=== PATIENT | male | born 1980 | race Two or more races ===

== ENCOUNTER 2016-05-23 14:42 | Emergency (ER) | payer OTHER ==
[2016-05-23 14:47] VITALS: BP 112/71; PULSE 78; RESP 16; TEMP 97.7; O2SAT 98
--- NOTE | 2016-05-23 15:16 | EDPHY ---
H & P Stated Complaint: COUGH X 1 WEEK YELLOW SPUTUM--SON HAS SIMILIAR Time Seen by Provider: 05/23/16 15:15 - Personal History Current Tetanus/Diphtheria Vaccine: Unsure Current Tetanus Diphtheria and Acellular Pertussis (TDAP): Unsure - Medical/Surgical History Hx Asthma: No Hx Chronic Respiratory Disease: No Hx Diabetes: No Hx Cardiac Disease: No Hx Renal Disease: No Hx Cirrhosis: No Hx Alcoholism: No Hx HIV/AIDS: No Hx Splenectomy or Spleen Trauma: No Other PMH: DENIES - Social History Smoking Status: Never smoked Constitutional: Initial Vital Signs Temperature (C) 36.5 C 05/23/16 14:44 Heart Rate 78 05/23/16 14:44 Respiratory Rate 16 05/23/16 14:44 Blood Pressure 112/71 05/23/16 14:44 O2 Sat (%) 98 05/23/16 14:44 O2 Delivery Mode Room Air Allergies/Adverse Reactions: No Known Allergies Allergy (Verified 05/23/16 14:43) Home Medications: Medication Instructions Recorded Vits 04/07/09 Medical Decision Making ED Course/Re-evaluation: CHIEF COMPLAINT: Cough HISTORY OF PRESENT ILLNESS: The patient is a 36 year old male presenting with ongoing cough for the past 2 weeks. The patient reports dry cough that is worse at night. He feels congested and more fatigued than usual. He has associated chest pain secondary to cough. He reports chest tightness that radiates into his throat. He took cough syrup, but his symptoms did not improve. The patient feels like his symptoms are getting worse. His son has similar symptoms and was just started on antibiotics. He denies fever or shortness of breath. REVIEW OF SYSTEMS: A 10 point review of systems was performed and is negative with the exception of the elements mentioned in the history of present illness. PHYSICAL EXAM: HR, BP, O2 Sat, RR. Temp noted General Appearance: Alert, well hydrated, appropriate, and non-toxic appearing. Head: Atraumatic without scalp tenderness or obvious injury Eyes: Pupils equal, round, reactive to light and accommodation, EOMI, no trauma , no injection. Ears: Clear bilaterally, no perforation, normal landmarks Nose: Atraumatic, no rhinorrhea, clear. Throat: There is no erythema or exudates, no lesions, normal tonsils, mucus membranes moist. Neck: Supple, 2+ carotid upstroke, nontender, no lymphadenopathy. Respiratory: No retractions, no distress, no wheezes, and no accessory muscle use. Lungs are clear to auscultation bilaterally. Cardiovascular: Regular rate and rhythm, no murmurs, rubs, or gallops. Bilateral carotid, radial, dorsalis pedis, and posterior tibial pulses intact. Good capillary refill all extremities. Gastrointestinal: Abdomen is soft, nontender, non-distended, no masses, no rebound, no guarding, no peritoneal signs. Musculoskeletal: Normal active ROM of all extremities, atraumatic. Neurological: Alert, appropriate, and interactive. The patient has normal DTRs and non-focal cranial nerves, motor, sensory, and cerebellar exam. Skin: No rashes, good turgor, no nodules on palpation. Past medical history: Denies Past surgical history: Denies Family history: No cardiac history Social history: Nonsmoker. [employer] Work[employer]. DIFFERENTIAL DIAGNOSIS: The differential diagnosis for the patient's cough and chest pain included but was not limited to viral infection, bronchitis, pneumonia, myocardial ischemia, pulmonary embolus, chest wall pain, pleural inflammation, and pulmonary infectious causes. MEDICAL DECISION MAKING: The patient is a healthy male presenting with ongoing cough for the past 2 weeks. He has associated chest tightness that radiates into his throat. The patient is healthy and active. He has no family cardiac history. On exam he has slight rhonchi bilaterally. Plan to start patient on antibiotic and cough suppressant. Departure - Departure Disposition: Home, Routine, Self-Care Clinical Impression: Bronchitis Condition: Good Instructions: Acute Bronchitis (ED) Additional Instructions: Take full course of antibiotics. Use cough suppressant at night before bed. Followup with the referred primary care physician for further evaluation. Referrals: Austin Serrano MD [Medical Doctor] - As per Instructions (Primary care physician referral) Report Scribed for: Roberto Mckeon Report Scribed by: Saray Haskins Date of Report: 05/23/16 Time of Report: 15:46
[2016-05-23] MEDS ORDERED: IBUPROFEN 800 MG TAB PO ONE (15:46)
[2016-05-23] MEDS ORDERED: IBUPROFEN 600 MG TAB PO ONE (15:59)
== END 2016-05-23 16:05 | disposition home or self-care (01) ==
DX: J40 Bronchitis, not specified as acute or chronic (principal)